=== PATIENT | female | born 2000 | race Caucasian/White ===

== ENCOUNTER → 2020-10-27 13:15 | Observation (INO) ==
[2020-10-27 12:26] LABS: Amorphous Sediment,Urine Few per hpf (None-Few); Bacteria,Urine Moderate per hpf (None-Few); Bilirubin,Urine Negative (Negative); Blood,Urine Moderate (Negative); Clarity,Urine Turbid (Clear); Color,Urine Yellow (Yellow); Glucose,Urine (UA) Normal (Normal); Ketones,Urine Negative (Negative); Leukocyte Esterase,Urine Large (Negative); Mucus,Urine Few per lpf (None-Few); Nitrite,Urine Negative (Negative); PH,Urine 7.5 pH Units (5.0-8.0); Protein,Urine 100 mg/dL (Neg-Trace); RBC,Urine 50-100 per hpf (0-3); Renal Epithelial Cells,Urine Few per hpf (None-Few); Specific Gravity,Urine 1.013 (1.010-1.025); Squamous Epithelial Cell,Urine Few per hpf (None-Few); Transitional Epi Cells,Urine Few per hpf (None-Few); Urobilinogen,Urine Normal (Normal); WBC,Urine TNTC per hpf (0-3)
== END | disposition home or self-care (01) ==
LOC: 1NENULAB
PROVIDERS: ADMIT Obstetrics & Gynecology; ATTEND Obstetrics & Gynecology

== ENCOUNTER 2020-11-12 10:47 | Inpatient (IN) ==
[2020-11-12 08:42] LABS: Hematocrit 39.6 % (35.3-44.9); Hemoglobin 13.5 g/dL (11.5-15.4); Mean Corpuscular HGB Conc 34.1 g/dL (31.6-35.5); Mean Corpuscular Hemoglobin 32.8 pg (28.0-33.3); Mean Corpuscular Volume 96.1 fL (83.0-100.0); Mean Platelet Volume 12.6 fL (9.4-12.4); Platelet Count 182 K/mcL (140-400); Red Blood Count 4.12 M/mcL (3.82-4.97); Red Cell Distribution Width 13.2 % (11.5-14.5); White Blood Count 12.1 K/mcL (4.3-11.1)
[2020-11-12 09:00] LABS: Alanine Aminotransferase 10 Units/L (7-52); Aspartate Amino Transferase 14 Units/L (13-39); Lactate Dehydrogenase 129 Units/L (140-271); Uric Acid 5.1 mg/dL (2.3-7.6); eGFR For African Americans > 60 (> 60); eGFR For Non-African Americans > 60 (> 60)
[2020-11-12 09:26] LABS: Protein/Creatinine Ratio,Urine 17.12 mg/mg (0.00-0.20)
[2020-11-12 10:06] LABS: Creatinine,Urine 39 mg/dL; Protein/Creatinine Ratio,Urine 4.74 mg/mg (0.00-0.20)
[~2020-11-12 10:47] MED LIST: *HR* Nalbuphine 10 MG/ML AMPUL IV PRN; Azithromycin 500 MG in 0.9 % Sodium Chloride 250 ML IVPB ONE; Famotidine 20 MG/2 ML VIAL IVP PRN; Lidocaine 1% 20 ML MDV INFILT PRN; Metoclopramide 10 MG/2 ML VIAL IVP PRN; Naloxone 0.4 MG/ML INJ IVP PRN; Ondansetron 4 MG/2 ML VIAL IVP ONE; Ondansetron 4 MG/2 ML VIAL IVP PRN; Ondansetron 4 MG/2 ML VIAL ONE; Oxytocin 20 units/ LR 1000 mL 20 UNIT/1,000 ML BAG IVC SCH
[2020-11-12 11:39] LABS: Amphetamine Screen,Urine Negative ng/mL (Cutoff=1000); Barbiturate Screen,Urine Negative ng/mL (Cutoff=200); Benzodiazepines Screen,Urine Negative ng/mL (Cutoff=200); Cannabinoid Screen,Urine Negative ng/mL (Cutoff = 50); Cocaine Screen,Urine Negative ng/mL (Cutoff= 300); Opiate Screen,Urine Negative ng/mL (Cutoff=300); Phencyclidine Screen,Urine Negative ng/mL (Cutoff=25)
[2020-11-12] MEDS: Ringers Solution, Lactated 1,000 ML IVC SCH ×2 (12:36→13:41)
[2020-11-12 12:37] LABS: Influenza A PCR Negative (Negative); Influenza B PCR Negative (Negative); Resp. Syncytial Virus PCR Negative (Negative)
[2020-11-12] MEDS ORDERED: Ropivacaine/PF 0.2% 20 ML VIAL ONE (12:42)
[2020-11-12] MEDS ORDERED: *HR* FentaNYL (PF) 100 MCG/2 ML VIAL ONE (12:42)
[2020-11-12] MEDS ORDERED: Epidural Premix (fent/bupiv) 110 ML EP ONE (12:51)
[2020-11-12] MEDS: Epidural Premix (fent/bupiv) 110 ML EP SCH ×2 (13:11→21:55)
[2020-11-12 13:26] LABS: SARS-CoV-2 by PCR (In House) Negative (Negative)
[2020-11-12] MEDS ORDERED: Ropivacaine/PF 0.2% 20 ML VIAL EP ONE (13:30)
[2020-11-12] MEDS ORDERED: *HR* FentaNYL (PF) 100 MCG/2 ML VIAL EP ONE (13:30)
[2020-11-12] MEDS ORDERED: EPHEDrine 50 MG/ML VIAL IVP PRN (13:30)
[2020-11-12] MEDS ORDERED: Mag Hydrox/Al Hydrox/Simeth 30 ML UDC PO ONE (14:56)
[2020-11-13] MEDS ORDERED: *HR* HYDROcodone/Acet 5/325 mg TABLET PO PRN (01:29)
[2020-11-13] MEDS ORDERED: Benzocaine/Menthol 56 GM AEROSOL SPRAY TP PRN (01:29)
[2020-11-13] MEDS ORDERED: Lanolin 7 G OINT...G. TP PRN (01:29)
[2020-11-13] MEDS ORDERED: Acetaminophen 325 MG TABLET PO PRN (01:29)
[2020-11-13] MEDS ORDERED: Oxytocin 20 units/ LR 1000 mL 20 UNIT/1,000 ML BAG IVC SCH (01:29)
[2020-11-13 05:17] LABS: Basophils % 0.2 %; Hematocrit 38.3 % (35.3-44.9); Hemoglobin 12.6 g/dL (11.5-15.4); Immature Granulocytes % 0.6 % (0-4); Lymphocytes # 1.1 K/mcL (0.6-4.6); Lymphocytes % 4.4 %; Mean Corpuscular HGB Conc 32.9 g/dL (31.6-35.5); Mean Corpuscular Hemoglobin 31.5 pg (28.0-33.3); Mean Corpuscular Volume 95.8 fL (83.0-100.0); Mean Platelet Volume 12.6 fL (9.4-12.4); Monocytes # 1.4 K/mcL (0.0-1.3); Platelet Count 178 K/mcL (140-400); Red Cell Distribution Width 13.4 % (11.5-14.5); Segmented Neutrophils % 88.8 %
[2020-11-13 05:21] LABS: Basophils # 0.1 K/mcL (0.0-0.2); Neutrophils # 21.1 K/mcL (1.6-8.9); White Blood Count 23.8 K/mcL (4.3-11.1)
[2020-11-13 05:33] LABS: Uric Acid 6.1 mg/dL (2.3-7.6)
[2020-11-13 05:35] LABS: Alanine Aminotransferase 15 Units/L (7-52); Aspartate Amino Transferase 30 Units/L (13-39); BUN/Creatinine Ratio 12 (6-26); Blood Urea Nitrogen 7 mg/dL (6-20); eGFR For African Americans > 60 (> 60); eGFR For Non-African Americans > 60 (> 60)
[2020-11-13] MEDS: Ibuprofen 600 MG TABLET PO PRN ×3 (07:25→22:41)
[2020-11-13] MEDS: Prenatal Vit/FA 1 EACH TABLET PO SCH (07:25)
[2020-11-14 06:14] LABS: Protein/Creatinine Ratio,Urine 0.26 mg/mg (0.00-0.20)
[2020-11-14 08:03] VITALS: BP 111/77
[2020-11-14] MEDS: Prenatal Vit/FA 1 EACH TABLET PO SCH (08:04)
[2020-11-14] MEDS: Ibuprofen 600 MG TABLET PO PRN (08:04)
== END 2020-11-14 12:30 | disposition home or self-care (01) | DRG 560 ==
LOC: 1NENULAB → 1NENUOBS 11-13 01:56
PROVIDERS: ADMIT Obstetrics & Gynecology; ATTEND Obstetrics & Gynecology